=== PATIENT | female | born 1975 | race African-American/Black ===

== ENCOUNTER 2021-08-23 11:24 | Inpatient (IN) | payer OTHER ==
[2021-08-23 12:04] VITALS: BMI 23.6
[2021-08-23] MEDS ORDERED: ONDANSETRON *ODT* 4 MG TABLET ONE (12:43)
[2021-08-23] MEDS ORDERED: METHOCARBAMOL 500 MG TABLET PO PRN (12:51)
[2021-08-23] MEDS ORDERED: ACETAMINOPHEN 325 MG TABLET (FP) PO PRN ×2 (12:51)
[2021-08-23] MEDS ORDERED: ONDANSETRON *ODT* 4 MG TABLET SL PRN (12:51)
[2021-08-23] MEDS ORDERED: NICOTINE 10 MG CARTRIDGE (INHALER) IH PRN (12:51)
[2021-08-23] MEDS ORDERED: MENTHOL/PHENOL 1 EACH UD MM PRN (12:51)
[2021-08-23] MEDS ORDERED: MAGNESIUM HYDROX 2400MG/30ML ORAL SUSPENSION 30 ML CUP PO PRN (12:51)
[2021-08-23] MEDS ORDERED: MAG HYDROX/AL HYDROX/SIMETH 30 ML UNIT-DOSE CUP PO PRN (12:51)
[2021-08-23] MEDS ORDERED: MAGNESIUM CITRATE 300 ML BOTTLE PO PRN (12:51)
[2021-08-23] MEDS ORDERED: cloNIDine HCL 0.1 MG TABLET PO PRN (12:51)
[2021-08-23] MEDS ORDERED: TRIMETHOBENZAMIDE HCL 200MG/2ML INJ IM ONE ×2 (13:08→13:24)
[2021-08-23] MEDS ORDERED: methaDONE HCL 10 MG TABLET (FOR DETOX USE ONLY) PO ONE (13:15)
[2021-08-23] MEDS: hydrOXYzine PAMOATE 25 MG CAPSULE (FP) PO SCH ×3 (14:12→22:00)
[2021-08-23] MEDS ORDERED: ONDANSETRON *ODT* 4 MG TABLET SL ONE (16:40)
[2021-08-23 21:33] VITALS: BP 157/88; PULSE 59; TEMP 96.8
[2021-08-23] MEDS ORDERED: THIAMINE HCL 100 MG TABLET (FP) PO SCH (22:00)
[2021-08-23] MEDS ORDERED: MELATONIN 5 MG TABLETS PO SCH (22:00)
[2021-08-24] MEDS: hydrOXYzine PAMOATE 25 MG CAPSULE (FP) PO SCH (07:12)
[2021-08-24] MEDS ORDERED: PRENATAL VITAMINS W/ FOLIC ACID TABLET (FP) PO SCH (10:00)
[2021-08-25] MEDS ORDERED: methaDONE HCL 10 MG TABLET (FOR DETOX USE ONLY) PO ONE (10:00)
[2021-08-27] MEDS ORDERED: methaDONE HCL 10 MG TABLET (FOR DETOX USE ONLY) PO ONE (10:00)
== END 2021-08-23 22:16 | disposition short-term general hospital (02) | DRG 897 ==
LOC: YASAS 11:24 → Y6N 13:14 → Y3N 13:21
PROVIDERS: ADMIT Allergy & Immunology; ATTEND Allergy & Immunology
PROC: HZ2ZZZZ Detoxification Services for Substance Abuse Treatment (ICD-10-PCS; principal; 2021-08-23)
DX: F11.23 Opioid dependence with withdrawal (principal); M54.9 Dorsalgia, unspecified; R10.9 Unspecified abdominal pain; R11.10 Vomiting, unspecified; Z98.84 Bariatric surgery status; Z85.42 Personal history of malignant neoplasm of other parts of uterus; Z88.8 Allergy status to other drugs, medicaments and biological substances
CPT/HCPCS: 81025; 93005; 93010; C9803; J0735; Q0162; U0003; U0005

== ENCOUNTER 2021-08-23 22:28 | Inpatient (IN) | payer OTHER ==
[2021-08-23] MEDS ORDERED: SODIUM CHLORIDE 0.9% 500 ML INFUS.BAG IV ONE (23:17)
[2021-08-23] MEDS ORDERED: METOCLOPRAMIDE HCL INJECTION 10 MG/2 ML VIAL IVPUSH ONE (23:17)
[2021-08-23] MEDS ORDERED: ACETAMINOPHEN 1000 MG/100 ML VIAL IVPB ONE (23:17)
[2021-08-23] MEDS ORDERED: ACETAMINOPHEN INJECTION 100 ML IVPB ONE (23:50)
[2021-08-23] MEDS ORDERED: METOCLOPRAMIDE HCL INJECTION 10 MG/2 ML VIAL ONE (23:50)
[2021-08-24 01:10] LABS: BASO % 0.2 % (0-2.0); HEMATOCRIT 29.1 % (32.4-45.2); HEMOGLOBIN 9.1 GM/dL (10.7-15.3); MCH 21.9 pg (25.7-33.7); MCHC 31.1 g/dl (32.0-36.0); MEAN CELL VOLUME 70.6 fl (80-96); MEAN PLT VOLUME 8.6 fl (7.5-11.1); MONO % 2.7 % (3.8-10.2); NEUT % 82.1 % (42.8-82.8); PLATELET COUNT 450 10^3/uL (134-434); RBC 4.13 M/mm3 (3.60-5.2); WHITE BLOOD COUNT 6.6 K/mm3 (4.0-10.0)
[2021-08-24 01:36] LABS: CALCIUM 10.5 mg/dL (8.5-10.1)
[2021-08-24 01:37] LABS: ALBUMIN 3.6 g/dl (3.4-5.0); BLOOD UREA NITROGEN 10.1 mg/dL (7-18)
[2021-08-24 01:39] LABS: CREATININE 0.8 mg/dL (0.55-1.3)
[2021-08-24 01:40] LABS: LACTIC ACID 2.1 mmol/L (0.4-2.0)
[2021-08-24 01:41] LABS: BILIRUBIN,TOTAL 0.4 mg/dL (0.2-1); TOT PROT 7.2 g/dl (6.4-8.2)
[2021-08-24] MEDS ORDERED: ONDANSETRON 4 MG/2 ML VIAL IVPUSH ONE (02:23)
[2021-08-24] MEDS ORDERED: ONDANSETRON 4 MG/2 ML VIAL ONE (02:25)
[2021-08-24] MEDS ORDERED: PIPERACILLIN/TAZOB 4.5 GM 4.5 GM in DEXTROSE 5%-WATER 100 ML IVPB ONE (04:37)
[2021-08-24] MEDS ORDERED: ACETAMINOPHEN 1000 MG/100 ML VIAL IVPB ONE (04:43)
[2021-08-24] MEDS ORDERED: ACETAMINOPHEN INJECTION 100 ML IVPB ONE (04:44)
[2021-08-24] MEDS ORDERED: PIPERACILLIN/TAZOB 4.5 GM 4.5 GM/100 ML BAG IVPB ONE (04:44)
[2021-08-24] MEDS ORDERED: SODIUM CHLORIDE 1,000 ML IV SCH (04:45)
[2021-08-24 05:26] LABS: LACTIC ACID 2.6 mmol/L (0.4-2.0)
[2021-08-24] MEDS ORDERED: LORazepam 2 MG/ML SDV VIAL IVPUSH ONE (06:19)
[2021-08-24] MEDS ORDERED: LORazepam 2 MG/ML SDV VIAL ONE (06:50)
[2021-08-24] MEDS: ACETAMINOPHEN 1000 MG/100 ML VIAL IVPB PRN ×2 (09:14→22:22)
[2021-08-24] MEDS ORDERED: ONDANSETRON 4 MG/2 ML VIAL IVPB PRN (09:14)
[2021-08-24] MEDS: DEXTROSE 5%-0.45% SALINE 1,000 ML IV SCH ×2 (09:22→10:41)
[2021-08-24] MEDS ORDERED: DEXTROSE 5%-WATER - 50 ML IVPB ONE ×3 (10:12→22:03)
[2021-08-24] MEDS ORDERED: PIPERACILLIN/TAZOBACTAM 3.375 GM VIAL IVPB ONE ×3 (10:12→22:03)
[2021-08-24] MEDS ORDERED: methaDONE HCL 10 MG TABLET (FOR DETOX USE ONLY) PO SCH (10:15)
[2021-08-24] MEDS: PANTOPRAZOLE SODIUM 40 MG VIAL IVPUSH SCH (10:42)
[2021-08-24] MEDS ORDERED: PIPERACILLIN/TAZOB 3.375 GM 3.375 GM in DEXTROSE 5%-WATER - 50 ML IVPB SCH (11:30)
[2021-08-24 11:36] VITALS: BMI 21.5
[2021-08-24] MEDS ORDERED: cloNIDine HCL 0.1 MG TABLET PO PRN (12:06)
[2021-08-24] MEDS: METHOCARBAMOL 500 MG TABLET PO SCH ×2 (12:53→22:30)
[2021-08-24] MEDS ORDERED: methaDONE HCL 10 MG TABLET ONE (14:09)
[2021-08-24 14:49] LABS: URINE APPEARANCE CLEAR; URINE BILIRUBIN NEGATIVE (NEGATIVE); URINE COLOR YELLOW; URINE GLUCOSE (UA) NEGATIVE (NEGATIVE); URINE KETONE NEGATIVE (NEGATIVE); URINE LEUK ESTERASE NEGATIVE (NEGATIVE); URINE NITRITE NEGATIVE (NEGATIVE); URINE PROTEIN NEGATIVE (NEGATIVE); URINE UROBILINOGEN 0.2 mg/dL (0.2-1.0)
[2021-08-24] MEDS: PIPERACILLIN/TAZOB 3.375 GM 3.375 GM in DEXTROSE 5%-WATER - 50 ML IVPB SCH ×2 (16:55→23:27)
[2021-08-25] MEDS ORDERED: PIPERACILLIN/TAZOB 3.375 GM 3.375 GM in DEXTROSE 5%-WATER - 50 ML IVPB SCH (02:00)
[2021-08-25] MEDS ORDERED: PIPERACILLIN/TAZOBACTAM 3.375 GM VIAL IVPB ONE ×2 (05:49→16:48)
[2021-08-25] MEDS ORDERED: DEXTROSE 5%-WATER - 50 ML IVPB ONE ×2 (05:49→16:48)
[2021-08-25 06:00] LABS: ALBUMIN 2.9 g/dl (3.4-5.0); CALCIUM 9.7 mg/dL (8.5-10.1)
[2021-08-25 06:01] LABS: BLOOD UREA NITROGEN 8.9 mg/dL (7-18)
[2021-08-25 06:04] LABS: CREATININE 0.6 mg/dL (0.55-1.3)
[2021-08-25 06:05] LABS: BILIRUBIN,TOTAL 0.4 mg/dL (0.2-1); TOT PROT 6.3 g/dl (6.4-8.2)
[2021-08-25 06:09] LABS: BASO % 1.3 % (0-2.0); EOS % 0.1 % (0-4.5); HEMATOCRIT 26.4 % (32.4-45.2); HEMOGLOBIN 8.1 GM/dL (10.7-15.3); LYMPH % 29.1 % (8-40); MCH 21.7 pg (25.7-33.7); MCHC 30.6 g/dl (32.0-36.0); MEAN CELL VOLUME 70.8 fl (80-96); MEAN PLT VOLUME 8.5 fl (7.5-11.1); MONO % 13.1 % (3.8-10.2); NEUT % 56.4 % (42.8-82.8); PLATELET COUNT 394 10^3/uL (134-434); RBC 3.73 M/mm3 (3.60-5.2); RDW 18.8 % (11.6-15.6)
[2021-08-25] MEDS: ACETAMINOPHEN 1000 MG/100 ML VIAL IVPB PRN (06:35)
[2021-08-25] MEDS: PIPERACILLIN/TAZOB 3.375 GM 3.375 GM in DEXTROSE 5%-WATER - 50 ML IVPB SCH ×2 (07:02→17:11)
[2021-08-25] MEDS: LORazepam 2 MG/ML SDV VIAL IVPUSH PRN ×2 (07:14→21:55)
[2021-08-25] MEDS ORDERED: methaDONE HCL 10 MG TABLET PO ONE (10:00)
[2021-08-25] MEDS: PANTOPRAZOLE SODIUM 40 MG VIAL IVPUSH SCH (12:43)
[2021-08-25] MEDS: METHOCARBAMOL 500 MG TABLET PO SCH ×2 (12:44→23:12)
[2021-08-25] MEDS ORDERED: PT OWN MED DRAWER 7, Y5N ONE (17:04)
[2021-08-25] MEDS: DEXTROSE 5%-0.45% SALINE 1,000 ML IV SCH (17:10)
[2021-08-25] MEDS ORDERED: ACETAMINOPHEN 500 MG TABLET (FP) PO ONE (23:46)
[2021-08-26] MEDS ORDERED: PIPERACILLIN/TAZOBACTAM 3.375 GM VIAL IVPB ONE ×3 (00:12→14:09)
[2021-08-26] MEDS ORDERED: DEXTROSE 5%-WATER - 50 ML IVPB ONE ×3 (00:12→14:09)
[2021-08-26] MEDS: PIPERACILLIN/TAZOB 3.375 GM 3.375 GM in DEXTROSE 5%-WATER - 50 ML IVPB SCH ×3 (00:17→14:13)
[2021-08-26] MEDS: DEXTROSE 5%-0.45% SALINE 1,000 ML IV SCH ×3 (03:59→23:14)
[2021-08-26] MEDS ORDERED: ACETAMINOPHEN 500 MG TABLET (FP) PO ONE (05:14)
[2021-08-26] MEDS ORDERED: ACETAMINOPHEN 1000 MG/100 ML VIAL IVPB PRN (07:09)
[2021-08-26 08:34] LABS: BASO % 0.6 % (0-2.0); EOS % 0.5 % (0-4.5); HEMOGLOBIN 8.8 GM/dL (10.7-15.3); LYMPH % 41.4 % (8-40); MCH 21.9 pg (25.7-33.7); MCHC 30.5 g/dl (32.0-36.0); MEAN CELL VOLUME 71.6 fl (80-96); MEAN PLT VOLUME 8.4 fl (7.5-11.1); MONO % 13.1 % (3.8-10.2); NEUT % 44.4 % (42.8-82.8); PLATELET COUNT 420 10^3/uL (134-434); RBC 4.04 M/mm3 (3.60-5.2); RDW 18.8 % (11.6-15.6); WHITE BLOOD COUNT 5.9 K/mm3 (4.0-10.0)
[2021-08-26 08:50] LABS: CALCIUM 10.5 mg/dL (8.5-10.1)
[2021-08-26 08:51] LABS: BLOOD UREA NITROGEN 5.4 mg/dL (7-18); MAGNESIUM 1.4 mg/dL (1.8-2.4)
[2021-08-26 08:54] LABS: CREATININE 0.6 mg/dL (0.55-1.3); PHOSPHOROUS 2.7 mg/dL (2.5-4.9)
[2021-08-26 08:55] LABS: BILIRUBIN,TOTAL 0.4 mg/dL (0.2-1); TOT PROT 6.4 g/dl (6.4-8.2)
[2021-08-26] MEDS ORDERED: methaDONE HCL 10 MG TABLET ONE (09:26)
[2021-08-26] MEDS: PANTOPRAZOLE SODIUM 40 MG VIAL IVPUSH SCH (09:32)
[2021-08-26] MEDS: METHOCARBAMOL 500 MG TABLET PO SCH ×2 (09:33→21:45)
[2021-08-26] MEDS ORDERED: IRON SUCROSE INJECTION 200 MG in SODIUM CHLORIDE 90 ML IVPB ONE (19:00)
[2021-08-26] MEDS: HEPARIN NA (PORCINE) 5,000 UNITS/ML 1ML VIAL SQ SCH (21:45)
[2021-08-26] MEDS: LORazepam 2 MG/ML SDV VIAL IVPUSH PRN ×2 (21:57→22:23)
[2021-08-27] MEDS ORDERED: MAGNESIUM SULF 50% (8.12 MEQ/2 ML-1 GM VIAL) IVPB ONE (06:03)
[2021-08-27] MEDS ORDERED: KCL 10 MEQ IVPB 10 MEQ/100 ML INFUS.BAG IVPB SCH (06:15)
[2021-08-27 06:29] VITALS: BP 161/89; PULSE 46; TEMP 99.6
[2021-08-27] MEDS: HEPARIN NA (PORCINE) 5,000 UNITS/ML 1ML VIAL SQ SCH ×2 (07:12→14:07)
[2021-08-27] MEDS: LORazepam 2 MG/ML SDV VIAL IVPUSH PRN (08:25)
[2021-08-27] MEDS ORDERED: methaDONE HCL 10 MG TABLET PO ONE ×2 (08:30→10:00)
[2021-08-27 08:39] LABS: BASO % 0.9 % (0-2.0); EOS % 1.4 % (0-4.5); HEMATOCRIT 28.3 % (32.4-45.2); LYMPH % 28.2 % (8-40); MCH 22.4 pg (25.7-33.7); MCHC 31.6 g/dl (32.0-36.0); MEAN CELL VOLUME 70.9 fl (80-96); MEAN PLT VOLUME 8.2 fl (7.5-11.1); MONO % 11.3 % (3.8-10.2); NEUT % 58.2 % (42.8-82.8); PLATELET COUNT 412 10^3/uL (134-434); RBC 3.99 M/mm3 (3.60-5.2); RDW 18.8 % (11.6-15.6)
[2021-08-27 09:00] LABS: CALCIUM 10.2 mg/dL (8.5-10.1)
[2021-08-27 09:01] LABS: ALBUMIN 3.2 g/dl (3.4-5.0); MAGNESIUM 2.3 mg/dL (1.8-2.4)
[2021-08-27 09:03] LABS: CREATININE 0.7 mg/dL (0.55-1.3)
[2021-08-27 09:04] LABS: PHOSPHOROUS 2.9 mg/dL (2.5-4.9)
[2021-08-27 09:05] LABS: BILIRUBIN,TOTAL 0.3 mg/dL (0.2-1); TOT PROT 6.7 g/dl (6.4-8.2)
[2021-08-27] MEDS ORDERED: cloNIDine HCL 0.1 MG TABLET PO PRN (09:32)
[2021-08-27] MEDS: FERROUS SO4 325 MG TABLET (FP) PO SCH ×2 (10:05→14:06)
[2021-08-27] MEDS: METHOCARBAMOL 500 MG TABLET PO SCH (10:05)
[2021-08-27] MEDS: PANTOPRAZOLE SODIUM 40 MG VIAL IVPUSH SCH (10:06)
[2021-08-27] MEDS: DEXTROSE 5%-0.45% SALINE 1,000 ML IV SCH (10:37)
[2021-08-27] MEDS ORDERED: amLODIPine BESYLATE 5 MG TABLET (FP) PO SCH (11:45)
[2021-08-27] MEDS ORDERED: MELATONIN 5 MG TABLETS PO SCH (22:00)
== END 2021-08-27 16:53 | disposition left against medical advice (07) | DRG 394 ==
LOC: JER 22:28 → JERBED 08-24 05:58 → J7W 08-24 09:36
PROVIDERS: ADMIT Internal Medicine; ATTEND Internal Medicine
DX: K66.1 Hemoperitoneum (principal); F11.23 Opioid dependence with withdrawal; R65.10 Systemic inflammatory response syndrome (SIRS) of non-infectious origin without acute organ dysfunction; E87.2 Acidosis; K76.89 Other specified diseases of liver; D50.9 Iron deficiency anemia, unspecified; R50.9 Fever, unspecified
CPT/HCPCS: 36415; 71045-TC-FY; 74176-TC; 74177-TC; 76856-TC; 80053; 81003; 82728; 83540; 83550; 83605; 83690; 83735; 84100; 84466; 85025; 85045; 87040; 87086; 87899; 93306-TC; 93970-TC; 99285-25; C9803; J0131; J1644; J1756; U0003; U0005

== ENCOUNTER 2021-09-01 21:06 | Inpatient (IN) | payer OTHER ==
[2021-09-01 23:29] VITALS: BMI 21.7
[2021-09-02] MEDS ORDERED: MELATONIN 5 MG TABLETS PO PRN (04:10)
[2021-09-02] MEDS ORDERED: BISMUTH SUBSALICYLATE 524 MG/30 ML PO PRN (04:10)
[2021-09-02] MEDS ORDERED: MAGNESIUM HYDROX 2400MG/30ML ORAL SUSPENSION 30 ML CUP PO PRN (04:10)
[2021-09-02] MEDS ORDERED: ACETAMINOPHEN 325 MG TABLET (FP) PO PRN ×2 (04:10)
[2021-09-02] MEDS ORDERED: MAG HYDROX/AL HYDROX/SIMETH 30 ML UNIT-DOSE CUP PO PRN (04:10)
[2021-09-02] MEDS ORDERED: MENTHOL/PHENOL 1 EACH UD MM PRN (04:10)
[2021-09-02] MEDS ORDERED: ONDANSETRON *ODT* 4 MG TABLET SL PRN (04:10)
[2021-09-02] MEDS ORDERED: methaDONE HCL 10 MG TABLET (FOR DETOX USE ONLY) PO ONE ×5 (04:10→12:00)
[2021-09-02] MEDS ORDERED: MAGNESIUM CITRATE 300 ML BOTTLE PO PRN (04:10)
[2021-09-02] MEDS ORDERED: IBUPROFEN 400 MG TABLET (FP) PO PRN (04:10)
[2021-09-02] MEDS ORDERED: IBUPROFEN 600 MG TABLET (FP) PO PRN (05:28)
[2021-09-02] MEDS ORDERED: HEPARIN NA (PORCINE) 5,000 UNITS/ML 1ML VIAL SQ SCH (06:00)
[2021-09-02] MEDS ORDERED: cloNIDine HCL 0.1 MG TABLET PO PRN ×2 (09:33→09:39)
[2021-09-02] MEDS ORDERED: methaDONE HCL 10 MG TABLET PO ONE (10:00)
[2021-09-02] MEDS: MAGNESIUM CL 64 MG TABLET.SA PO SCH (10:35)
[2021-09-02] MEDS: PRENATAL VITAMINS W/ FOLIC ACID TABLET (FP) PO SCH (10:35)
[2021-09-02] MEDS: LACTOBACILLUS ACIDOPHILUS 1 TABLET PO SCH (10:35)
[2021-09-02] MEDS: METHOCARBAMOL 500 MG TABLET PO PRN ×2 (10:36→22:35)
[2021-09-02] MEDS: FERROUS SO4 325 MG TABLET (FP) PO SCH ×2 (10:36→22:32)
[2021-09-02] MEDS: HEPARIN NA (PORCINE) 5,000 UNITS/ML 1ML VIAL SQ SCH ×3 (10:36→23:06)
[2021-09-02] MEDS: AMOX TR/POT CLAV 875MG/125MG TABLETS (FP) PO SCH ×2 (11:16→22:32)
[2021-09-02] MEDS: NAPH,MB-DB/K PH,MBDB POWDER PACKET PO SCH (15:56)
[2021-09-02] MEDS: hydrOXYzine PAMOATE 25 MG CAPSULE (FP) PO PRN (20:40)
[2021-09-02] MEDS: cloNIDine HCL 0.1 MG TABLET PO PRN (22:35)
[2021-09-02] MEDS: THIAMINE HCL 100 MG TABLET (FP) PO SCH (22:35)
[2021-09-03] MEDS: hydrOXYzine PAMOATE 25 MG CAPSULE (FP) PO PRN ×2 (02:14→10:04)
[2021-09-03] MEDS: cloNIDine HCL 0.1 MG TABLET PO PRN (02:44)
[2021-09-03] MEDS: HEPARIN NA (PORCINE) 5,000 UNITS/ML 1ML VIAL SQ SCH ×2 (06:59→13:11)
[2021-09-03] MEDS ORDERED: methaDONE HCL 10 MG TABLET (FOR DETOX USE ONLY) ONE (09:12)
[2021-09-03] MEDS ORDERED: methaDONE HCL 10 MG TABLET (FOR DETOX USE ONLY) PO ONE (10:00)
[2021-09-03] MEDS: METHOCARBAMOL 500 MG TABLET PO PRN (10:03)
[2021-09-03] MEDS: FERROUS SO4 325 MG TABLET (FP) PO SCH ×2 (10:03→22:26)
[2021-09-03] MEDS: PRENATAL VITAMINS W/ FOLIC ACID TABLET (FP) PO SCH (10:03)
[2021-09-03] MEDS: NAPH,MB-DB/K PH,MBDB POWDER PACKET PO SCH (10:04)
[2021-09-03] MEDS: AMOX TR/POT CLAV 875MG/125MG TABLETS (FP) PO SCH ×2 (10:04→22:25)
[2021-09-03] MEDS: LACTOBACILLUS ACIDOPHILUS 1 TABLET PO SCH (10:05)
[2021-09-03] MEDS: MAGNESIUM CL 64 MG TABLET.SA PO SCH (10:05)
[2021-09-03] MEDS: THIAMINE HCL 100 MG TABLET (FP) PO SCH (22:25)
[2021-09-03] MEDS: SUVOREXANT 10 MG TABLET PO PRN (22:26)
[2021-09-04] MEDS: hydrOXYzine PAMOATE 25 MG CAPSULE (FP) PO PRN ×2 (02:22→13:26)
[2021-09-04] MEDS: cloNIDine HCL 0.1 MG TABLET PO PRN (05:43)
[2021-09-04] MEDS ORDERED: methaDONE HCL 10 MG TABLET (FOR DETOX USE ONLY) PO ONE ×3 (10:00)
[2021-09-04] MEDS: PRENATAL VITAMINS W/ FOLIC ACID TABLET (FP) PO SCH (10:08)
[2021-09-04] MEDS: AMOX TR/POT CLAV 875MG/125MG TABLETS (FP) PO SCH ×2 (10:09→22:24)
[2021-09-04] MEDS: LACTOBACILLUS ACIDOPHILUS 1 TABLET PO SCH (10:09)
[2021-09-04] MEDS: NAPH,MB-DB/K PH,MBDB POWDER PACKET PO SCH (10:09)
[2021-09-04] MEDS: FERROUS SO4 325 MG TABLET (FP) PO SCH ×2 (10:11→22:24)
[2021-09-04 10:33] LABS: INR 1.13 (0.83-1.09); PROTHROMBIN TIME (PATIENT) 12.7 SEC (9.7-13.0)
[2021-09-04 10:42] LABS: CALCIUM 10.6 mg/dL (8.5-10.1)
[2021-09-04 10:43] LABS: ALBUMIN 3.1 g/dl (3.4-5.0); BLOOD UREA NITROGEN 8.8 mg/dL (7-18)
[2021-09-04 10:46] LABS: CREATININE 0.7 mg/dL (0.55-1.3)
[2021-09-04 10:47] LABS: HEMOGLOBIN 8.5 GM/dL (10.7-15.3); MCH 23.4 pg (25.7-33.7); MCHC 30.4 g/dl (32.0-36.0); MEAN PLT VOLUME 7.8 fl (7.5-11.1); PLATELET COUNT 364 10^3/uL (134-434); RBC 3.64 M/mm3 (3.60-5.2); RDW 23.4 % (11.6-15.6); TOT PROT 6.3 g/dl (6.4-8.2); WHITE BLOOD COUNT 4.3 K/mm3 (4.0-10.0)
[2021-09-04 10:49] LABS: BILIRUBIN,TOTAL 0.2 mg/dL (0.2-1)
[2021-09-04] MEDS: MAGNESIUM CL 64 MG TABLET.SA PO SCH (13:24)
[2021-09-04] MEDS: SUVOREXANT 10 MG TABLET PO PRN (22:22)
[2021-09-04] MEDS: THIAMINE HCL 100 MG TABLET (FP) PO SCH (22:24)
[2021-09-05] MEDS: hydrOXYzine PAMOATE 25 MG CAPSULE (FP) PO PRN (02:24)
[2021-09-05 07:42] VITALS: BP 139/92; PULSE 64; TEMP 98.2
[2021-09-06] MEDS ORDERED: methaDONE HCL 10 MG TABLET (FOR DETOX USE ONLY) PO ONE (10:00)
== END 2021-09-05 10:09 | disposition home or self-care (01) | DRG 897 ==
LOC: YASAS 21:06 → Y6N 09-02 03:11
PROVIDERS: ADMIT Allergy & Immunology; ATTEND Allergy & Immunology
PROC: HZ2ZZZZ Detoxification Services for Substance Abuse Treatment (ICD-10-PCS; principal; 2021-09-02)
DX: F11.23 Opioid dependence with withdrawal (principal); F19.282 Other psychoactive substance dependence with psychoactive substance-induced sleep disorder; L03.114 Cellulitis of left upper limb; F19.24 Other psychoactive substance dependence with psychoactive substance-induced mood disorder; F41.9 Anxiety disorder, unspecified; F32.9 Major depressive disorder, single episode, unspecified; D64.9 Anemia, unspecified; Z86.718 Personal history of other venous thrombosis and embolism; Z90.710 Acquired absence of both cervix and uterus; Z98.84 Bariatric surgery status; Z88.8 Allergy status to other drugs, medicaments and biological substances; Z29.9 Encounter for prophylactic measures, unspecified
CPT/HCPCS: 36415; 71045-TC-FY; 73201-TC-RT; 80053; 81025; 83605; 83690; 83735; 84100; 84484; 85025; 85027; 85610; 85730; 86780; 87040; 93005; 93010; 93971; 99285-25; C9803; G0378; J0131; J0735; J1644; U0003; U0005

== ENCOUNTER 2021-09-08 07:09 | Inpatient (IN) | payer OTHER ==
[2021-09-08 07:59] VITALS: BMI 22.6
[2021-09-08] MEDS ORDERED: IBUPROFEN 400 MG TABLET (FP) PO PRN (08:09)
[2021-09-08] MEDS ORDERED: MAG HYDROX/AL HYDROX/SIMETH 30 ML UNIT-DOSE CUP PO PRN (08:09)
[2021-09-08] MEDS ORDERED: MAGNESIUM HYDROX 2400MG/30ML ORAL SUSPENSION 30 ML CUP PO PRN (08:09)
[2021-09-08] MEDS ORDERED: ACETAMINOPHEN 325 MG TABLET (FP) PO PRN ×2 (08:09)
[2021-09-08] MEDS ORDERED: ONDANSETRON *ODT* 4 MG TABLET SL PRN (08:09)
[2021-09-08] MEDS ORDERED: MAGNESIUM CITRATE 300 ML BOTTLE PO PRN (08:09)
[2021-09-08] MEDS ORDERED: METHOCARBAMOL 500 MG TABLET PO PRN (08:09)
[2021-09-08] MEDS ORDERED: BISMUTH SUBSALICYLATE 524 MG/30 ML PO PRN (08:09)
[2021-09-08] MEDS ORDERED: MENTHOL/PHENOL 1 EACH UD MM PRN (08:09)
[2021-09-08] MEDS ORDERED: methaDONE HCL 10 MG TABLET (FOR DETOX USE ONLY) PO ONE (08:45)
[2021-09-08] MEDS ORDERED: FERROUS SO4 325 MG TABLET (FP) PO SCH (10:00)
[2021-09-08] MEDS ORDERED: AMOX TR/POT CLAV 875MG/125MG TABLETS (FP) PO SCH (10:00)
[2021-09-08] MEDS: hydrOXYzine PAMOATE 25 MG CAPSULE (FP) PO SCH ×4 (10:53→23:46)
[2021-09-08] MEDS: LACTOBACILLUS ACIDOPHILUS 1 TABLET PO SCH (10:54)
[2021-09-08] MEDS: PRENATAL VITAMINS W/ FOLIC ACID TABLET (FP) PO SCH (10:59)
[2021-09-08 11:40] LABS: CHLORIDE 107 mmol/L (98-107); SODIUM 139 mmol/L (136-145)
[2021-09-08 11:41] LABS: HEMATOCRIT 29.2 % (32.4-45.2); HEMOGLOBIN 9.2 GM/dL (10.7-15.3); MCH 23.8 pg (25.7-33.7); MCHC 31.7 g/dl (32.0-36.0); MEAN CELL VOLUME 75.1 fl (80-96); MEAN PLT VOLUME 7.7 fl (7.5-11.1); PLATELET COUNT 460 10^3/uL (134-434); RBC 3.88 M/mm3 (3.60-5.2); RDW 25.6 % (11.6-15.6); WHITE BLOOD COUNT 4.1 K/mm3 (4.0-10.0)
[2021-09-08 11:44] LABS: ALBUMIN 3.5 g/dl (3.4-5.0); CALCIUM 10.5 mg/dL (8.5-10.1)
[2021-09-08 11:45] LABS: ANION GAP 4 MMOL/L (8-16); BLOOD UREA NITROGEN 10.6 mg/dL (7-18); CO2 28 mmol/L (21-32)
[2021-09-08 11:47] LABS: SGOT/AST 20 U/L (15-37); SGPT/ALT 50 U/L (13-61)
[2021-09-08 11:48] LABS: CREATININE 0.6 mg/dL (0.55-1.3); GLUCOSE,RANDOM 40 mg/dL (74-106)
[2021-09-08 11:49] LABS: BILIRUBIN,TOTAL 0.3 mg/dL (0.2-1); TOT PROT 6.8 g/dl (6.4-8.2)
[2021-09-08 11:50] LABS: ALK PHOS 100 U/L (45-117)
[2021-09-08] MEDS ORDERED: PATIENT'S OWN MEDICATION (NON-FORMULARY) (Amoxicillin [Amoxicillin] 875 MG Tablet) PO SCH (17:30)
[2021-09-08] MEDS: PATIENT'S OWN MEDICATION (NON-FORMULARY) (Amoxicillin/Potassium Clav [Augmentin 875-125 Ta PO SCH (17:43)
[2021-09-08] MEDS: FERROUS SO4 325 MG TABLET (FP) PO SCH ×2 (17:45→17:46)
[2021-09-08] MEDS ORDERED: TRIMETHOBENZAMIDE HCL 200MG/2ML INJ IM ONE (20:48)
[2021-09-08] MEDS: cloNIDine HCL 0.1 MG TABLET PO PRN (23:46)
[2021-09-08] MEDS: MELATONIN 5 MG TABLETS PO SCH (23:46)
[2021-09-08] MEDS: THIAMINE HCL 100 MG TABLET (FP) PO SCH (23:46)
[2021-09-09] MEDS: hydrOXYzine PAMOATE 25 MG CAPSULE (FP) PO SCH ×5 (06:46→22:12)
[2021-09-09] MEDS: PATIENT'S OWN MEDICATION (NON-FORMULARY) (Amoxicillin/Potassium Clav [Augmentin 875-125 Ta PO SCH ×2 (07:49→18:13)
[2021-09-09] MEDS: FERROUS SO4 325 MG TABLET (FP) PO SCH ×3 (07:49→18:13)
[2021-09-09] MEDS ORDERED: methaDONE HCL 10 MG TABLET (FOR DETOX USE ONLY) ONE (09:09)
[2021-09-09] MEDS: PRENATAL VITAMINS W/ FOLIC ACID TABLET (FP) PO SCH (10:15)
[2021-09-09] MEDS: LACTOBACILLUS ACIDOPHILUS 1 TABLET PO SCH (10:16)
[2021-09-09] MEDS: LISINOPRIL 10 MG TABLET PO SCH (11:11)
[2021-09-09] MEDS ORDERED: cloNIDine HCL 0.1 MG TABLET PO ONE (13:30)
[2021-09-09] MEDS: cloNIDine HCL 0.1 MG TABLET PO PRN (22:13)
[2021-09-09] MEDS: THIAMINE HCL 100 MG TABLET (FP) PO SCH (22:37)
[2021-09-09] MEDS: MELATONIN 5 MG TABLETS PO SCH ×2 (22:37→23:31)
[2021-09-10] MEDS: hydrOXYzine PAMOATE 25 MG CAPSULE (FP) PO SCH ×3 (06:44→16:23)
[2021-09-10] MEDS: cloNIDine HCL 0.1 MG TABLET PO PRN (06:48)
[2021-09-10] MEDS: PATIENT'S OWN MEDICATION (NON-FORMULARY) (Amoxicillin/Potassium Clav [Augmentin 875-125 Ta PO SCH ×2 (07:02→17:52)
[2021-09-10] MEDS: FERROUS SO4 325 MG TABLET (FP) PO SCH ×3 (07:02→17:52)
[2021-09-10] MEDS ORDERED: MASKS NR ONE (08:49)
[2021-09-10] MEDS ORDERED: methaDONE HCL 10 MG TABLET (FOR DETOX USE ONLY) PO ONE (10:00)
[2021-09-10] MEDS: PRENATAL VITAMINS W/ FOLIC ACID TABLET (FP) PO SCH (10:44)
[2021-09-10] MEDS: LACTOBACILLUS ACIDOPHILUS 1 TABLET PO SCH (10:44)
[2021-09-10] MEDS: LISINOPRIL 10 MG TABLET PO SCH (10:44)
[2021-09-10] MEDS ORDERED: QUEtiapine FUMARATE 50 MG TABLET PO SCH (22:00)
[2021-09-10] MEDS: THIAMINE HCL 100 MG TABLET (FP) PO SCH (22:10)
[2021-09-10] MEDS: MELATONIN 5 MG TABLETS PO SCH (22:10)
[2021-09-11] MEDS: PATIENT'S OWN MEDICATION (NON-FORMULARY) (Amoxicillin/Potassium Clav [Augmentin 875-125 Ta PO SCH ×2 (08:04→18:16)
[2021-09-11] MEDS: FERROUS SO4 325 MG TABLET (FP) PO SCH ×3 (08:05→18:15)
[2021-09-11] MEDS ORDERED: methaDONE HCL 10 MG TABLET (FOR DETOX USE ONLY) ONE (08:45)
[2021-09-11] MEDS: LACTOBACILLUS ACIDOPHILUS 1 TABLET PO SCH (10:12)
[2021-09-11] MEDS: LISINOPRIL 10 MG TABLET PO SCH (10:13)
[2021-09-11] MEDS: PRENATAL VITAMINS W/ FOLIC ACID TABLET (FP) PO SCH (10:14)
[2021-09-11] MEDS ORDERED: MELATONIN 5 MG TABLETS PO PRN (10:34)
[2021-09-11] MEDS: hydrOXYzine PAMOATE 25 MG CAPSULE (FP) PO PRN ×2 (14:30→22:38)
[2021-09-11] MEDS: THIAMINE HCL 100 MG TABLET (FP) PO SCH (22:38)
[2021-09-11] MEDS: QUEtiapine FUMARATE 100 MG TABLET (FP) PO SCH (22:38)
[2021-09-12] MEDS: FERROUS SO4 325 MG TABLET (FP) PO SCH ×3 (09:14→17:32)
[2021-09-12] MEDS: PATIENT'S OWN MEDICATION (NON-FORMULARY) (Amoxicillin/Potassium Clav [Augmentin 875-125 Ta PO SCH ×2 (09:14→17:31)
[2021-09-12] MEDS ORDERED: methaDONE HCL 10 MG TABLET (FOR DETOX USE ONLY) PO ONE (10:00)
[2021-09-12] MEDS: hydrOXYzine PAMOATE 25 MG CAPSULE (FP) PO PRN ×2 (10:08→22:24)
[2021-09-12] MEDS: PRENATAL VITAMINS W/ FOLIC ACID TABLET (FP) PO SCH (10:08)
[2021-09-12] MEDS: LACTOBACILLUS ACIDOPHILUS 1 TABLET PO SCH (10:08)
[2021-09-12] MEDS ORDERED: cloNIDine HCL 0.1 MG TABLET PO PRN (12:10)
[2021-09-12] MEDS: QUEtiapine FUMARATE 100 MG TABLET (FP) PO SCH (22:23)
[2021-09-12] MEDS: THIAMINE HCL 100 MG TABLET (FP) PO SCH (22:23)
[2021-09-13] MEDS: FERROUS SO4 325 MG TABLET (FP) PO SCH (07:07)
[2021-09-13] MEDS: PATIENT'S OWN MEDICATION (NON-FORMULARY) (Amoxicillin/Potassium Clav [Augmentin 875-125 Ta PO SCH (07:07)
[2021-09-13 09:51] VITALS: TEMP 98.2
[2021-09-13 10:00] VITALS: BP 110/68; PULSE 65
== END 2021-09-13 10:05 | disposition home or self-care (01) | DRG 897 ==
LOC: YASAS 07:09 → Y3N 09:00
PROVIDERS: ADMIT Allergy & Immunology; ATTEND Allergy & Immunology
PROC: HZ2ZZZZ Detoxification Services for Substance Abuse Treatment (ICD-10-PCS; principal; 2021-09-08)
DX: F11.23 Opioid dependence with withdrawal (principal); F19.282 Other psychoactive substance dependence with psychoactive substance-induced sleep disorder; F19.24 Other psychoactive substance dependence with psychoactive substance-induced mood disorder; F32.A Depression, unspecified; D64.9 Anemia, unspecified; E16.2 Hypoglycemia, unspecified; G47.00 Insomnia, unspecified; M54.50 Low back pain, unspecified; G89.29 Other chronic pain; R03.0 Elevated blood-pressure reading, without diagnosis of hypertension; Z86.718 Personal history of other venous thrombosis and embolism; Z85.42 Personal history of malignant neoplasm of other parts of uterus; Z91.410 Personal history of adult physical and sexual abuse; Z98.84 Bariatric surgery status; Z90.710 Acquired absence of both cervix and uterus; Z88.8 Allergy status to other drugs, medicaments and biological substances
CPT/HCPCS: 36415; 80053; 81025; 82947; 82962; 85027; 86780; 93005; 93010; C9803; J0735; Q0162; U0003; U0005

== ENCOUNTER 2021-10-13 13:42 | Inpatient (IN) | payer OTHER ==
[2021-10-13] MEDS ORDERED: ACETAMINOPHEN 325 MG TABLET (FP) PO PRN (16:47)
[2021-10-13] MEDS ORDERED: MAGNESIUM CITRATE 300 ML BOTTLE PO PRN (16:47)
[2021-10-13] MEDS ORDERED: traZODone HCL 50 MG TABLET (FP) PO PRN (16:47)
[2021-10-13] MEDS ORDERED: MAGNESIUM HYDROX 2400MG/30ML ORAL SUSPENSION 30 ML CUP PO PRN (16:47)
[2021-10-13] MEDS ORDERED: MAG HYDROX/AL HYDROX/SIMETH 30 ML UNIT-DOSE CUP PO PRN (16:47)
[2021-10-13] MEDS ORDERED: MENTHOL/PHENOL 1 EACH UD MM PRN (16:47)
[2021-10-13] MEDS ORDERED: methaDONE HCL 10 MG TABLET (FOR DETOX USE ONLY) PO ONE (16:59)
[2021-10-13 18:33] VITALS: BMI 21.9
[2021-10-13] MEDS: METHOCARBAMOL 500 MG TABLET PO PRN (19:27)
[2021-10-13] MEDS: hydrOXYzine PAMOATE 25 MG CAPSULE (FP) PO PRN (19:27)
[2021-10-13] MEDS ORDERED: MELATONIN 5 MG TABLETS PO SCH (22:00)
[2021-10-13] MEDS: THIAMINE HCL 100 MG TABLET (FP) PO SCH (22:19)
[2021-10-14] MEDS ORDERED: methaDONE HCL 10 MG TABLET (FOR DETOX USE ONLY) ONE (09:12)
[2021-10-14] MEDS: PRENATAL VITAMINS W/ FOLIC ACID TABLET (FP) PO SCH (10:57)
[2021-10-14] MEDS: diazePAM 5 MG TABLET PO PRN ×2 (11:07→18:31)
[2021-10-14] MEDS: cloNIDine HCL 0.1 MG TABLET PO PRN ×2 (11:11→22:27)
[2021-10-14 12:17] LABS: HEMATOCRIT 34.1 % (32.4-45.2); HEMOGLOBIN 10.6 GM/dL (10.7-15.3); MEAN CELL VOLUME 80.5 fl (80-96); MEAN PLT VOLUME 8.3 fl (7.5-11.1); PLATELET COUNT 362 10^3/uL (134-434); RBC 4.24 M/mm3 (3.60-5.2); RDW 23.2 % (11.6-15.6); WHITE BLOOD COUNT 4.1 K/mm3 (4.0-10.0)
[2021-10-14 12:21] LABS: ALBUMIN 3.2 g/dl (3.4-5.0); BLOOD UREA NITROGEN 6.9 mg/dL (7-18); CALCIUM 10.8 mg/dL (8.5-10.1)
[2021-10-14 12:24] LABS: CREATININE 0.7 mg/dL (0.55-1.3)
[2021-10-14 12:26] LABS: BILIRUBIN,TOTAL 0.3 mg/dL (0.2-1); TOT PROT 6.5 g/dl (6.4-8.2)
[2021-10-14] MEDS: QUEtiapine FUMARATE 50 MG TABLET PO SCH (22:27)
[2021-10-14] MEDS: THIAMINE HCL 100 MG TABLET (FP) PO SCH (22:27)
[2021-10-14] MEDS: METHOCARBAMOL 500 MG TABLET PO PRN (22:27)
[2021-10-14] MEDS: hydrOXYzine PAMOATE 25 MG CAPSULE (FP) PO PRN (22:27)
[2021-10-15] MEDS: diazePAM 5 MG TABLET PO PRN ×4 (02:53→19:54)
[2021-10-15] MEDS ORDERED: methaDONE HCL 10 MG TABLET (FOR DETOX USE ONLY) PO ONE (10:00)
[2021-10-15] MEDS: PRENATAL VITAMINS W/ FOLIC ACID TABLET (FP) PO SCH (10:20)
[2021-10-15] MEDS: cloNIDine HCL 0.1 MG TABLET PO PRN (11:12)
[2021-10-15] MEDS: hydrOXYzine PAMOATE 25 MG CAPSULE (FP) PO PRN (15:43)
[2021-10-15] MEDS: ONDANSETRON *ODT* 4 MG TABLET SL PRN (22:25)
[2021-10-15] MEDS: THIAMINE HCL 100 MG TABLET (FP) PO SCH (22:26)
[2021-10-15] MEDS: QUEtiapine FUMARATE 50 MG TABLET PO SCH (22:26)
[2021-10-16] MEDS: diazePAM 5 MG TABLET PO PRN ×4 (02:58→18:33)
[2021-10-16] MEDS ORDERED: methaDONE HCL 10 MG TABLET (FOR DETOX USE ONLY) ONE (09:01)
[2021-10-16] MEDS: PRENATAL VITAMINS W/ FOLIC ACID TABLET (FP) PO SCH (09:11)
[2021-10-16] MEDS: METHOCARBAMOL 500 MG TABLET PO PRN ×2 (09:14→21:02)
[2021-10-16] MEDS: ONDANSETRON *ODT* 4 MG TABLET SL PRN (09:16)
[2021-10-16] MEDS: hydrOXYzine PAMOATE 25 MG CAPSULE (FP) PO PRN ×2 (12:45→21:02)
[2021-10-16] MEDS: cloNIDine HCL 0.1 MG TABLET PO PRN (18:33)
[2021-10-16] MEDS: ACETAMINOPHEN 325 MG TABLET (FP) PO PRN (21:02)
[2021-10-16] MEDS: THIAMINE HCL 100 MG TABLET (FP) PO SCH (23:16)
[2021-10-16] MEDS: QUEtiapine FUMARATE 50 MG TABLET PO SCH (23:16)
[2021-10-17] MEDS ORDERED: methaDONE HCL 10 MG TABLET (FOR DETOX USE ONLY) PO ONE (10:00)
[2021-10-17] MEDS: hydrOXYzine PAMOATE 25 MG CAPSULE (FP) PO PRN ×2 (10:28→15:17)
[2021-10-17] MEDS: cloNIDine HCL 0.1 MG TABLET PO PRN ×2 (10:28→22:17)
[2021-10-17] MEDS: PRENATAL VITAMINS W/ FOLIC ACID TABLET (FP) PO SCH (10:31)
[2021-10-17] MEDS: METHOCARBAMOL 500 MG TABLET PO PRN (15:17)
[2021-10-17] MEDS: QUEtiapine FUMARATE 50 MG TABLET PO SCH (22:16)
[2021-10-17] MEDS: THIAMINE HCL 100 MG TABLET (FP) PO SCH (22:16)
[2021-10-17] MEDS: ACETAMINOPHEN 325 MG TABLET (FP) PO PRN (22:18)
[2021-10-18] MEDS: PRENATAL VITAMINS W/ FOLIC ACID TABLET (FP) PO SCH (09:15)
[2021-10-18 09:39] VITALS: BP 105/61; PULSE 93; TEMP 97.5
== END 2021-10-18 09:33 | disposition home or self-care (01) | DRG 897 ==
LOC: YASAS 13:42 → Y3N 18:04
PROVIDERS: ADMIT Allergy & Immunology; ATTEND Allergy & Immunology
PROC: HZ2ZZZZ Detoxification Services for Substance Abuse Treatment (ICD-10-PCS; principal; 2021-10-13)
DX: F11.23 Opioid dependence with withdrawal (principal); F19.282 Other psychoactive substance dependence with psychoactive substance-induced sleep disorder; F19.24 Other psychoactive substance dependence with psychoactive substance-induced mood disorder; F32.A Depression, unspecified; D64.9 Anemia, unspecified; G47.00 Insomnia, unspecified; M54.59 Other low back pain; G89.29 Other chronic pain; Z85.42 Personal history of malignant neoplasm of other parts of uterus; Z88.8 Allergy status to other drugs, medicaments and biological substances; Z90.710 Acquired absence of both cervix and uterus; Z86.718 Personal history of other venous thrombosis and embolism; Z98.84 Bariatric surgery status; Z56.0 Unemployment, unspecified
CPT/HCPCS: 36415; 80053; 85027; 86780; C9803; J0735; Q0162; U0003; U0005